=== PATIENT | female | born 1990 | race Caucasian/White ===

== ENCOUNTER 2019-04-04 11:42 | Inpatient (IN) | payer OTHER ==
[~2019-04-04 11:42] MED LIST: Bupivacaine 0.25% HCL 30 ML VIAL ONE
[2019-04-04] MEDS: Lactated Ringer's 1,000 ML IV SCH ×2 (12:16→16:26)
[2019-04-04] MEDS ORDERED: Diphenoxylate HCl/Atropine Tablet PO PRN (12:25)
[2019-04-04] MEDS ORDERED: NS / Oxytocin 40 units/1000ml 1,000 ML IV PRN (12:25)
[2019-04-04] MEDS ORDERED: Carboprost 250 MCG/ML AMP IM PRN (12:25)
[2019-04-04] MEDS ORDERED: Ondansetron PF 4 MG/2 ML Vial IVP PRN ×2 (12:25→13:52)
[2019-04-04] MEDS ORDERED: hydrALAZINE 20 MG/ML VIAL SLOW IVP PRN ×2 (12:25→20:52)
[2019-04-04] MEDS ORDERED: Methylergonovine 0.2 MG/ML VIAL IM PRN (12:25)
[2019-04-04] MEDS ORDERED: Ibuprofen 800 MG TAB PO PRN (12:25)
[2019-04-04] MEDS ORDERED: Promethazine HCl 25 MG/ML VIAL IM PRN ×2 (12:25→13:52)
[2019-04-04] MEDS ORDERED: Acetaminophen 500 MG TAB PO PRN (12:25)
[2019-04-04] MEDS ORDERED: HYDROcodone/Acetaminophen 5/325 mg Tablet PO PRN ×2 (12:25→20:52)
[2019-04-04] MEDS ORDERED: Butorphanol Tartrate 1 MG/ML VIAL SLOW IVP PRN (12:25)
[2019-04-04] MEDS ORDERED: Misoprostol 200 MCG TAB PR PRN (12:25)
[2019-04-04] MEDS ORDERED: Lidocaine 1% (PF) 30 ML VIAL SC PRN (12:25)
[2019-04-04 12:38] VITALS: BMI 27.9
[2019-04-04 12:39] LABS: Hemoglobin 12.9 g/dL (12.0-16.0); Mean Corpuscular HGB CONC 32.4 g/dL (32.0-36.0); Mean Corpuscular Volume 80.3 fL (78.0-98.0); Mean Platelet Volume 8.3 fL (7.4-10.4); Platelet Count 169 thou/uL (130-400); RBC Distribution Width 12.1 % (11.5-14.5); Red Blood Cell (RBC) Count 4.95 mill/uL (4.20-5.40)
[2019-04-04] MEDS ORDERED: Fentanyl 4 mcg/Bup 0.1% Cadd 100 ML ONE (12:47)
--- NOTE | 2019-04-04 12:47 | PDOC.LDHP ---
Labor and Delivery H&P Chief complaint: contractions HPI: 28 yo @38w5d by LMP c/w 27 week sono who presents for ctx. Denies LOF. Pt had slight bleeding after stripping membranes. Antepartum course complicated by LTC. Due date: 04/13/19 Dating criteria: last menstrual period Grav: 2 Para: 1 OB History Details: 1 term Current complications: none Abnormal US findings: No Past Medical History: Denies Current medications: pre- vitamins Previous surgical history: other (hand surgery) Allergies/Adverse Reactions: Allergies Allergy/AdvReac Type Severity Reaction Status Date / Time No Known Allergies Allergy Unverified 04/04/19 12:33 Social history: none - Physical Exam Vital signs reviewed and normal: yes General: NAD Heart: RRR Lungs: nonlabored breathing Abdomen: gravid Extremeties: no edema FHT: category 2 (130s, mod jerald, +accels, one variable decel) Jet contractions every: pt feels q2-3 min - not tracing well - Vaginal Exam cm dilated: 5 (cephalic ) Effacement: 90% Station: -1 - OB Labs Blood type: O RH: positive Antibody Screen: negative HIV: negative RPR: negative HEPSAg: negative 1 hour GCT: negative GBS: negative Urine drug screen: negative Rubella: non-immune - Assessment 38w5d IUP Active labor Rubella NI LTC - Plan Plan: admit to L&D, labor augmentation if indicated, informed consent obtained, anesthesia consult for pain management
[2019-04-04 13:27] LABS: HBSAg Index 0.29 S/CO (0-0.99); Hep B Surf Ag Non-Reactive S/CO (NonReactive); Syphilis Antibody Nonreactive (Nonreactive); Syphilis Antibody Index 0.05 S/CO (<1.00 Non-Reactive)
[2019-04-04 13:50] LABS: HIV (1/2) Antibody/Antigen Non-Reactive (NonReactive); HIV 1/2 INDEX 0.09 S/CO (<1.00)
[2019-04-04] MEDS ORDERED: Lactated Ringer's 500 ML IV PRN (13:52)
[2019-04-04] MEDS ORDERED: diphenhydrAMINE 50 MG/ML VIAL IVP PRN (13:52)
[2019-04-04] MEDS ORDERED: Naloxone HCl 0.4 mg/ml Vial IVP PRN ×2 (13:52)
[2019-04-04] MEDS ORDERED: Acetaminophen 325 MG TAB PO PRN (13:52)
[2019-04-04] MEDS ORDERED: ePHEDrine/0.9% NaCl/PF SYRINGE 50 mg/10 ml SLOW IVP PRN (13:52)
[2019-04-04] MEDS ORDERED: Fentanyl 4 mcg/Bupivacaine 0.1% Cassette 100 ML EPIDURAL SCH (14:00)
[2019-04-04] MEDS ORDERED: Communication Order-Pharmacy FS SCH (14:00)
[2019-04-04] MEDS ORDERED: Calcium Carbonate 500 MG ChewTAB PO SCH ×2 (16:45→22:00)
--- NOTE | 2019-04-04 17:36 | PDOC.OPDEL ---
OB Operative/Delivery Note Delivery Dr/Surgeon: Yesi Powell DO Pre-Delivery Diagnosis: active labor Procedure/Post Delivery Dx: spontaneous vaginal delivery Weeks gestation: 38 Anesthesia: epidural - Findings A Sex: female - 1 min: 9 - 5 min: 9 - Additional Findings/Plan Placenta delivered: spontaneous Repaired Obstetrical Laceration: vaginal (left side wall) Estimated blood loss: QBL 150 cc Compilations/Other Findings: in cephalic presentation, JAMES position Normal appearing placenta Nuchal x 1 Post delivery plan: routine recovery
[2019-04-04] MEDS ORDERED: Bisacodyl 10 MG SUPP PR PRN (20:52)
[2019-04-04] MEDS ORDERED: Milk Of Magnesia 30 ML UDCUP PO PRN (20:52)
[2019-04-04] MEDS ORDERED: Lanolin Ointment 7 GM TUBE TOP PRN (20:52)
[2019-04-04] MEDS ORDERED: Benzocaine-Menthol 82.5 ML CAN TOP PRN (20:52)
[2019-04-04] MEDS ORDERED: NS / Oxytocin 40 units/1000ml 1,000 ML IV SCH (20:52)
[2019-04-04] MEDS: Docusate Calcium (SURFAK) 240 MG CAP PO SCH (22:08)
[2019-04-04] MEDS: Ibuprofen 800 MG TAB PO SCH (22:09)
[2019-04-05] MEDS ORDERED: Calcium Carbonate 500 MG ChewTAB PO PRN (03:07)
[2019-04-05] MEDS: Ibuprofen 800 MG TAB PO SCH ×2 (06:00→14:26)
--- NOTE | 2019-04-05 08:27 | PDOC.PP ---
Post Progress Note Post Day #: 1 Subjective: No concerns. Minimal bleeding and pain. Breast feeding for now. No f/c this AM, only flushing last night. PO intake tolerated: yes Flatus: yes Ambulation: yes Vital Signs (12 hours) Temp Pulse Resp BP Pulse Ox 04/05/19 07:50 98.6 F 76 20 109/56 L 100 04/05/19 03:20 98.3 F 77 18 115/70 04/04/19 23:25 99.7 F H 91 18 119/62 04/04/19 22:20 100.5 F H 97 20 121/67 04/04/19 21:10 99.6 F 98 18 125/63 97 Weight Weight 195 lb - Physical Examination General: NAD Cardiovascular: RRR Respiratory: non-labored breathing Abdominal: no distention, appropriately TTP Fundus firm & at: below umbilicus Extremities: negative homans (B) Neurological: no gross focal deficits Psychiatric: A&Ox3, normal affect Result Diagrams: 04/04/19 12:17 Additional Labs: Post Labs Blood Type O POSITIVE 04/04/19 12:50 Hep Bs Antigen Non-Reactive S/CO (NonReactive) 04/04/19 12:17 (1) Vaginal delivery Code(s): O80 - ENCOUNTER FOR FULL-TERM UNCOMPLICATED DELIVERY Status: Acute - Assessment/Plan PPD1 VSS, one isolated temp 100.5F, remainder wnl. No signs or sx of endometritis. Plan for continued PP care and desires d/c this afternoon with infant.
[2019-04-05] MEDS ORDERED: Measles/Mumps/Rubella 10 MCG/0.5 ML VIAL SC ONE (09:00)
[2019-04-05] MEDS ORDERED: Prenatal Vitamin 1 TAB PO SCH (09:00)
[2019-04-05] MEDS: Docusate Calcium (SURFAK) 240 MG CAP PO SCH (10:04)
[2019-04-05 11:28] VITALS: BP 102/55; TEMP 98.9
== END 2019-04-05 19:15 | disposition home or self-care (01) | DRG 806 ==
LOC: L&D/OP 11:42 → L&D 12:16 → 3SW 21:08
PROVIDERS: ADMIT Obstetrics & Gynecology; ATTEND Obstetrics & Gynecology
PROC: 10E0XZZ Delivery of Products of Conception, External Approach (ICD-10-PCS; principal; 2019-04-04)
PROC: 0UQGXZZ Repair Vagina, External Approach (ICD-10-PCS; 2019-04-04)
DX: O69.81X0 Labor and delivery complicated by cord around neck, without compression, not applicable or unspecified (principal); O71.4 Obstetric high vaginal laceration alone; Z37.0 Single live birth; Z3A.38 38 weeks gestation of pregnancy
CPT/HCPCS: 36415; 51702; 85027; 86780; 86850; 86900; 86901; 87340; 87389; 99285; J2405; S0020